=== PATIENT | male | born 1975 | race Two or more races ===

== ENCOUNTER 2021-07-27 10:25 | Outpatient (REF) | payer MEDICAID, SELFPAY ==
[2021-07-27 11:15] LABS: Hematocrit 43.1 % (42.0-52.0); Hemoglobin 14.2 g/dl (14.0-18.0); Mean Corpuscular HGB Conc 32.9 g/dl (31.0-36.0); Mean Corpuscular Hemoglobin 31.4 pg (27.0-33.0); Mean Corpuscular Volume 95.4 fL (80.0-98.0); Mean Platelet Volume 9.4 fL (9.4-12.4); Platelet Count 275 X10*3/uL (160-400); Red Blood Count 4.52 X10*6/uL (4.60-5.80); Red Cell Distribution Width 13.2 % (11.0-16.0)
[2021-07-27 12:12] LABS: Alanine Aminotransferase 11 U/L (0-40); Albumin Level 4.2 g/dL (3.5-5.0); Alkaline Phosphatase 52 U/L (39-117); Anion Gap 12 (12-20); Aspartate Amino Transferase 16 U/L (5-37); Bilirubin Direct 0.2 mg/dL (0.0-0.5); Bilirubin Total 0.6 mg/dL (0.0-1.0); Blood Urea Nitrogen 12 mg/dL (9-16); Calcium 9.6 mg/dL (8.4-10.2); Carbon Dioxide 26 mmol/L (22-29); Chloride 108 mmol/L (96-108); Cholesterol 197 mg/dL; Estimated Glomerular Filt Rate > 60; Glucose Random 92 mg/dL (60-115); HDL Cholesterol 50 mg/dL; LDL Cholesterol Calculated 131 mg/dl; Potassium 4.8 mmol/L (3.3-5.1); Sodium 141 mmol/L (135-145); Total Protein 6.7 g/dL (6.5-8.0); Triglycerides 84 mg/dL
[2021-07-27 12:35] LABS: Prostate Specific Antigen 1.61 ng/mL (<0.05-4.0); TSH reflex Free T4 0.46 uIU/mL (0.32-4.0)
== END 2021-07-27 10:26 | disposition home or self-care (01) ==
LOC: HO.LAB 10:25
PROVIDERS: PCP Internal Medicine Geriatric Medicine; Visit Provider Internal Medicine Geriatric Medicine
DX: Z12.5 Encounter for screening for malignant neoplasm of prostate (principal); Z13.1 Encounter for screening for diabetes mellitus; R40.0 Somnolence; R06.83 Snoring; E78.00 Pure hypercholesterolemia, unspecified; H53.8 Other visual disturbances
CPT/HCPCS: 36415; 80048; 80061; 80076; 84153; 84443; 85027

== ENCOUNTER 2022-03-08 10:54 | Outpatient (REF) | payer MEDICAID, SELFPAY ==
[2022-03-08 11:48] LABS: Alanine Aminotransferase 10 U/L (0-40); Albumin Level 4.3 g/dL (3.5-5.0); Alkaline Phosphatase 51 U/L (39-117); Anion Gap 11 (12-20); Aspartate Amino Transferase 15 U/L (5-37); Bilirubin Total 0.6 mg/dL (0.0-1.0); Blood Urea Nitrogen 12 mg/dL (9-16); Calcium 8.9 mg/dL (8.4-10.2); Carbon Dioxide 24 mmol/L (22-29); Chloride 106 mmol/L (96-108); Cholesterol 179 mg/dL; Estimated Glomerular Filt Rate 58; Glucose Random 95 mg/dL (60-115); HDL Cholesterol 47 mg/dL; LDL Cholesterol Calculated 114 mg/dl; Potassium 4.7 mmol/L (3.3-5.1); Sodium 136 mmol/L (135-145); Total Protein 6.7 g/dL (6.5-8.0); Triglycerides 90 mg/dL
== END 2022-03-08 10:55 | disposition home or self-care (01) ==
LOC: HO.LAB 10:54
PROVIDERS: PCP Internal Medicine Geriatric Medicine; Visit Provider Internal Medicine Geriatric Medicine
DX: E78.00 Pure hypercholesterolemia, unspecified (principal); Z79.899 Other long term (current) drug therapy
CPT/HCPCS: 36415; 80053; 80061

== ENCOUNTER → 2022-03-21 07:54 | Outpatient (BNVA) | payer MEDICAID, SELFPAY | PROVIDERS: PCP Internal Medicine Geriatric Medicine; Referring Provider Internal Medicine Geriatric Medicine; Visit Provider Nurse Practitioner Family | DX: Z01.818 Encounter for other preprocedural examination (principal) | CPT/HCPCS: 99202 ==

== ENCOUNTER 2022-07-23 12:37 | Day surgery (SDC) | payer MEDICAID, SELFPAY ==
[2022-07-15 13:25] VITALS: BMI 21.5
--- NOTE | 2022-07-22 10:51 | P.CONAN_ITS ---
Documented by User: Sindi Harvey NP 07/22/22 10:53 HPI - Anesthesia Eval Consult details Narrative: 47yo M for Colonoscopy [facility] Past Medical History Medical History (Updated 07/15/22 @ 13:17 by Neha Wilkins RN) Elevated cholesterol GERD (gastroesophageal reflux disease) Insomnia Family History Family History (Updated 03/21/22 @ 08:04 by Tony Pagan) Mother HTN (hypertension) High cholesterol Lung cancer Surgical History Surgical History (Updated 07/15/22 @ 13:24 by Neha Wilkins RN) No pertinent past surgical history Social History Social History (Updated 03/21/22 @ 08:02 by Tony Pagan) Household Members: Spouse Are you a primary career services director to a significant other at home: No Do you presently have visiting nurse or other home services: No Alcohol intake: current Alcohol intake frequency: does not drink Patient Tobacco Use Status: Never used Tobacco Use of substances other than those prescribed or required for medical reasons: Yes Substance Use Type: Marijuana Substance Use Frequency: Occasionally Have you been hit, kicked, punched, or otherwise hurt by someone within the past year? If so, by whom?: No Are you DNR?: No Advance Directives: No Advance Directives Information Provided: Yes (brochure mailed) Advance Directives on File: No Recently lost weight without trying: No Eating poorly because of decreased appetite: No Nutrition Risks: No Nutritional Risk Poor oral hygiene: No Meds Allergies Allergy/AdvReac Type Severity Reaction Status Date / Time No Known Allergies Allergy Verified 07/23/22 12:51 Home Medications Medication Instructions Recorded Confirmed Last Taken Type atorvastatin 20 mg tablet 20 mg PO DAILY 03/21/22 07/15/22 Unknown History omeprazole 20 mg capsule,delayed 20 mg PO DAILY 03/21/22 07/15/22 Unknown History release trazodone 50 mg tablet 100 mg PO BEDTIME 03/21/22 07/15/22 Unknown History zolpidem 10 mg tablet 10 mg PO BEDTIME 03/21/22 07/15/22 Unknown History Exam Exam Date and Time: July 22, 2022 1051 Height,Weight and Vital Signs: Height 5 ft 10 in Weight 68.039 kg Pertinent Lab Results Pertinent Lab Results: Laboratory Tests 07/27/21 03/08/22 10:35 11:02 WBC 9.0 Hgb 14.2 Hct 43.1 Plt Count 275 Sodium 136 Potassium 4.7 Chloride 106 Carbon Dioxide 24 BUN 12 Creatinine 1.32 Assessment and Plan Assessment Anesthesia Assessment: Chart Reviewed Documented by User: Pilar Dial MD 07/23/22 13:04 [facility] Past Medical History Medical History (Updated 07/15/22 @ 13:17 by Neha Wilkins RN) Elevated cholesterol GERD (gastroesophageal reflux disease) Insomnia Family History Family History (Updated 03/21/22 @ 08:04 by Tony Pagan) Mother HTN (hypertension) High cholesterol Lung cancer Family history of problems with anesthesia: No Surgical History Surgical History (Updated 07/15/22 @ 13:24 by Neha Wilkins RN) No pertinent past surgical history History of Problems with Anesthesia: No Social History Social History (Updated 03/21/22 @ 08:02 by Tony Pagan) Household Members: Spouse Are you a primary career services director to a significant other at home: No Do you presently have visiting nurse or other home services: No Alcohol intake: current Alcohol intake frequency: does not drink Patient Tobacco Use Status: Never used Tobacco Use of substances other than those prescribed or required for medical reasons: Yes Substance Use Type: Marijuana Substance Use Frequency: Occasionally Have you been hit, kicked, punched, or otherwise hurt by someone within the past year? If so, by whom?: No Are you DNR?: No Advance Directives: No Advance Directives Information Provided: Yes (brochure mailed) Advance Directives on File: No Recently lost weight without trying: No Eating poorly because of decreased appetite: No Nutrition Risks: No Nutritional Risk Poor oral hygiene: No Meds Allergies Allergy/AdvReac Type Severity Reaction Status Date / Time No Known Allergies Allergy Verified 07/23/22 12:51 Home Medications Medication Instructions Recorded Confirmed Last Taken Type atorvastatin 20 mg tablet 20 mg PO DAILY 03/21/22 07/15/22 Unknown History omeprazole 20 mg capsule,delayed 20 mg PO DAILY 03/21/22 07/15/22 Unknown History release trazodone 50 mg tablet 100 mg PO BEDTIME 03/21/22 07/15/22 Unknown History zolpidem 10 mg tablet 10 mg PO BEDTIME 03/21/22 07/15/22 Unknown History Assessment and Plan Final Anesthetic Review Family History of Problems with Anesthesia: No History of Problems with Anesthesia: No
--- NOTE | 2022-07-23 12:44 | MHC.SHP ---
Pre-Procedural Eval Section A Date of Service: 07/23/22 Section B Chief Complaint: screening Relevant Family History (Specify if Yes): No Relevant Social History: Other (specify) (occ THC use) Present Medications: see Short Stay Collaborative assessment Medical History: Significant History (Elevated cholesterol GERD (gastroesophageal reflux disease) Insomnia) History of Previous Operations: No relevant previous surgery Allergies: Allergies Allergy/AdvReac Type Severity Reaction Status Date / Time No Known Allergies Allergy Verified 03/21/22 08:01 Review of Systems Sugical H&P ROS: Negative: Constitution, Cardiovascular, Respiratory, Neurological, Psychiatric, Hem-Onc, Allergic/Immunologic, Gastrointestinal, Genitourinary, Musculoskeletal, Integumentary, Endocrine and Eyes/Ears/Nose/Throat Exam Surgical H&P Exam: Normal: HEENT, Normal: Heart, Normal: Lungs, Normal: Extremities, Normal: Abdomen, Normal: Skin and Normal: Neurological Plan Diagnosis/Plan: Unchanged I have reviewed the history and physical and performed a pertinent physical examination on my patient. No changes have occurred unless specified.
[2022-07-23 13:03] VITALS: BP 124/88; PULSE 90; RESP 16; TEMP 36.8; O2SAT 100
[2022-07-23] MEDS: Lactated Ringers 1,000 ML 100 ML IVCONT (13:37)
--- NOTE | 2022-07-23 14:04 | W.PM.OPN ---
Operative Note Operative Note Date of Service: 07/23/22 Narrative: Operative Information Procedure Description: Colonoscopy Indication: screening Anesthesia: MAC COLONOSCOPY Instrument: Olympus variable stiffness ADULT scope 190L Colonoscopy Monitoring: Vital signs and clinical assessment, continuous EKG monitoring, Pulse oximetry, Carbon Dioxide monitoring and blood pressure monitoring were done throughout the procedure. Colon withdrawal time was 8 minutes. Procedure: The patient was placed in the left lateral decubitis position and pre-procedure medications were administered. After a digital rectal examination of the ano-rectum, the video colonoscope was inserted into the rectum and advanced through the colon to the cecum/TI. The colonoscope was slowly withdrawn in a retrograde panoramic fashion and the colon mucosa was carefully examined including a retroflexed view of the rectum. Findings and interventions are described below. Procedure Difficulty: easy Findings: Terminal Ileum-normal Cecum: 7-8 mm sessile polyp removed with cold forceps Ascending Colon: normal Transverse Colon - 7-8 mm sessile polyp removed with cold forceps Descending Colon:normal Sigmoid Colon: 8-9 mm sessile polyp removed with cold snare Rectum: Retroflexion with medium sized internal hemorrhoids, grade I, 4-5 mm sessile polyp removed with cold forceps Anorectum - normal Colon preparation: [place] Bowel Preparation Scale Right colon; 1-2 Transverse colon: 2 Left colon; -1-2 (0 = Unprepared colon segment with mucosa not seen due to solid stool that cannot be cleared. 1 = Portion of mucosa of the colon segment seen, but other areas of the colon segment not well seen due to staining, residual stool and/or opaque liquid. 2 = Minor amount of residual staining, small fragments of stool and/or opaque liquid, but mucosa of colon segment seen well. 3 = Entire mucosa of colon segment seen well with no residual staining, small fragments of stool or opaque liquid) Impression and Post Procedure Diagnosis: polyps internal hemorrhoids Plan: High fiber diet leaflet Avoid straining at stool, epsom salts and sitz bath, anusol supps or cream Repeat Colonoscopy in 1-2 years due to fair prep or earlier if clinically indicated Above findings were reviewed with the patient and relevant handouts were provided if indicated.
[2022-07-23 14:16] VITALS: BP 100/62; PULSE 64; RESP 12; TEMP 36.6; O2SAT 99
[2022-07-23 14:30] VITALS: BP 125/72; PULSE 62; RESP 16; O2SAT 99
[2022-07-23 14:45] VITALS: BP 133/78; PULSE 60; RESP 16; O2SAT 99
[2022-07-23 15:00] VITALS: BP 118/72; PULSE 60; RESP 16; TEMP 37.1; O2SAT 99
== END 2022-07-23 15:55 | disposition home or self-care (01) ==
PROVIDERS: PCP Internal Medicine Geriatric Medicine; Visit Provider Internal Medicine Gastroenterology
PROC: 0DJD8ZZ Inspection of Lower Intestinal Tract, Via Natural or Artificial Opening Endoscopic (ICD-10-PCS; CPT 45378; principal; 2022-07-23 13:50)
DX: Z12.11 Encounter for screening for malignant neoplasm of colon (principal); D12.0 Benign neoplasm of cecum; D12.3 Benign neoplasm of transverse colon; K62.1 Rectal polyp; K46.0 Unspecified abdominal hernia with obstruction, without gangrene; K21.9 Gastro-esophageal reflux disease without esophagitis; E78.00 Pure hypercholesterolemia, unspecified; G47.00 Insomnia, unspecified; Z79.899 Other long term (current) drug therapy; F12.90 Cannabis use, unspecified, uncomplicated
CPT/HCPCS: 45385; 45380; 88302; 88305

== ENCOUNTER → 2022-08-06 08:06 | Outpatient (BNVA) | payer MEDICAID, SELFPAY | PROVIDERS: PCP Internal Medicine Geriatric Medicine; Visit Provider Nurse Practitioner Family | DX: K59.01 Slow transit constipation (principal); D36.9 Benign neoplasm, unspecified site; Z98.890 Other specified postprocedural states | CPT/HCPCS: 99212 ==

== ENCOUNTER 2023-03-18 10:05 | Outpatient (AMB) | payer MEDICAID, SELFPAY ==
[2023-03-18 10:33] VITALS: BP 120/70; PULSE 75; BMI 21.7
--- NOTE | 2023-03-18 10:33 | A.OFFVIS_ITS ---
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 Patient had suboptimal prior and will need to return for follow-up in 1 year. Status post colonoscopy Patient denies any ill effects from the prep, anesthesia or procedure itself. Suboptimal prep and will need to repeat colonoscopy in 1 year. Tubular adenoma found. Patient does have a family history of colorectal cancer. Constipation Patient does reports that occasionally he will feel like he needs to strain to have a bowel movement. Will send a script for MiraLax. I will see him in 6 months to re-evaluate. Patient will need to come back for colonoscopy due to suboptimal prep. He is agreeable to plan and verbalizes understanding instructions he was given the opportunity to ask questions and all questions answered. ? Thank for allowing me to participate in his care Plan Medications New polyethylene glycol 3350 (Miralax) 17 grams PO DAILY 510 grams 2RF hydrocortisone 2.5% (Proctosol HC) 1 appl LA BID-QID PRN 30 grams 2RF hemorrhoids K64.9 TODAY'S VISIT Patient is here today for follow-up. Patient is accompanied by his . Patient reports that he has been moving his bowels much better. Complains of rectal discomfort. This that he feels like his hemorrhoids are back. Tried Proctosol cream, however he feels like they are coming back. Patient denies any rectal bleeding. Reports that his bowels are mostly soft and he is moving them every day. Patient is taking MiraLax daily. Patient denies any other GI concerning symptoms. States that omeprazole helps him with acid reflux and uses on a as needed basis. [facility] Medical History Elevated cholesterol GERD (gastroesophageal reflux disease) Insomnia Tubular adenoma Surgical History Hx of colonoscopy No pertinent past surgical history Family History Mother HTN (hypertension) High cholesterol Lung cancer Social History Household Members: Spouse Are you a primary manager intensive care unit to a significant other at home: No Do you presently have visiting nurse or other home services: No Alcohol intake: current Alcohol intake frequency: does not drink Patient Tobacco Use Status: Never used Tobacco Substance Use Type: Crack/Cocaine and Marijuana Review of Systems Const Denies weight gain and Denies weight loss ENT Reports no additional complaints, Denies dysphagia and Denies odynophagia Card Reports no additional complaints Resp Reports no additional complaints GI Denies abdominal pain, Denies belching, Denies melena, Denies bloating, Denies change in bowel habits, Denies dysphagia, Denies excessive flatus, Denies dyspepsia, Denies heartburn, Denies diarrhea, Denies loose stools, Denies nausea, Denies odynophagia, Denies vomiting and Reports other (Rectal pain due to hemorrhoids) Reports no additional complaints Musc Reports no additional complaints Neuro Reports no additional complaints Psych Reports no additional complaints Endo Reports no additional complaints Physical Exam Vital Signs: Last Vital Signs Pulse 75 03/18/23 10:33 BP 120/70 03/18/23 10:33 BMI result Body Mass Index 21.7 Const General: healthy appearing, no acute distress and well developed Nutritional Appearance: well nourished Orientation/consciousness: patient oriented x3 HEENT Head: Yes normal to inspection, Yes normocephalic and Yes atraumatic Face and sinus: Yes normal facial exam Mouth: Normal oral and palatal mucosa present Throat: Yes posterior oropharynx normal, Yes tonsils normal and Yes uvula midline Eyes General: appearance normal, both eyes and all related structures Neck Neck: Yes normal visual inspection, Yes full ROM and Yes trachea midline Thyroid: Thyroid normal Resp Effort & Inspection: normal respiratory effort, able to speak in complete sentences, no tracheal deviation and symmetric chest movement Auscultation: clear to auscultation bilaterally Cardio Rate: regular rate Heart sounds: S1 normal heart sound present and S2 normal heart sound present GI Inspection: Yes normal to inspection and No distended Palpation (GI): Soft to palpation, not firm, nontender and No hepatosplenomegaly present Auscultation: normal bowel sounds General: Yes no CVA tenderness Back/Spine/Pelvis Back: no CVA tenderness Skin General skin exam: elasticity normal, turgor normal and dry skin Neuro General: patient oriented x3 Psych Appearance: grossly normal Mental Status: mental status grossly normal Speech and movement: Normal speech and movement present Affect: normal affect Assessment & Plan Assessment & Plan (1) Constipation: Code(s): K59.00 - Constipation, unspecified Qualifiers: Constipation type: slow transit constipation Qualified Code(s): K59.01 - Slow transit constipation Plan: Continue MiraLax. Patient was encouraged to increase fluid intake (2) Hemorrhoid: Code(s): K64.9 - Unspecified hemorrhoids Qualifiers: Hemorrhoid type: unspecified Qualified Code(s): K64.9 - Unspecified hemorrhoids Plan: Patient was instructed to use Proctosol cream couple times a day for 1 week at least. Then he can use it daily. Stool softener as needed. Patient was encouraged to get donut pillow to sitting. Sitz baths using Epsom salts (3) GERD (gastroesophageal reflux disease): Code(s): K21.9 - Gastro-esophageal reflux disease without esophagitis Plan: Continue taking omeprazole. Discussed with patient avoiding dietary triggers and late night snacking. Staying upright for minimal 3 hours after meals discussed with patient. I will see him in 3 months, sooner on as needed basis. Patient is agreeable to this plan and verbalizes understanding of instructions. He was given the opportunity to ask questions and all questions answered. Thank you for allowing me to participate in his care Medications: Refilled hydrocortisone 2.5% (Proctosol HC) 1 appl LA BID-QID PRN 30 grams 2RF hemorrhoids K64.9 - Unspecified hemorrhoids Coding Level of Care Code Est Pt Level 3 (71853) Diagnoses Constipation K59.01 Constipation type: slow transit constipation Hemorrhoid K64.9 Hemorrhoid type: unspecified GERD (gastroesophageal reflux disease) K21.9 Time Spent (min) 30 Comment 20 minutes spent with patient and additional 10 minutes spent reviewing his records
== END 2023-03-18 10:49 | disposition home or self-care (01) ==
PROVIDERS: PCP Internal Medicine Geriatric Medicine; Visit Provider Nurse Practitioner Family
DX: K59.01 Slow transit constipation (principal); K64.9 Unspecified hemorrhoids; K21.9 Gastro-esophageal reflux disease without esophagitis
CPT/HCPCS: 99213

== ENCOUNTER → 2023-03-18 10:05 | Outpatient (BNVA) | payer MEDICAID, SELFPAY | PROVIDERS: PCP Internal Medicine Geriatric Medicine; Visit Provider Nurse Practitioner Family | DX: K59.01 Slow transit constipation (principal); K64.9 Unspecified hemorrhoids; K21.9 Gastro-esophageal reflux disease without esophagitis | CPT/HCPCS: 99213 ==

== ENCOUNTER 2023-06-23 09:33 | Outpatient (AMB) | payer MEDICAID, SELFPAY ==
[2023-06-23 09:51] VITALS: BP 114/73; PULSE 61; O2SAT 99; BMI 22.5
--- NOTE | 2023-06-23 09:51 | A.OFFVIS_ITS ---
Intake Vital Signs 06/23/23 09:51 Height 5 ft 10 in Weight 156 lb 8.451 oz BMI 22.5 BP 114/73 Blood Pressure Location Lt brachial Position Sitting Pulse 61 Pulse Source Pulse Oximeter Pulse Oximetry (%) 99 Oxygen Delivery Method Room Air Intake Visit Reasons: 3 month follow up Intake Note: Pt presents to the office today for a 3 month follow up. Pt states he is feeling well. Pt states the constipation has improved and it is easier to have a bowel movement since taking the miralax. Pt denies any N/V/D. Allergies No Known Allergies Allergy (Verified 06/23/23 09:53) HPI 3 month follow up HPI Details LAST VISIT Constipation Continue MiraLax. Patient was encouraged to increase fluid intake Hemorrhoid Patient was instructed to use Proctosol cream couple times a day for 1 week at least. Then he can use it daily. Stool softener as needed. Patient was encouraged to get donut pillow to sitting. Sitz baths using Epsom salts GERD (gastroesophageal reflux disease) Continue taking omeprazole. Discussed with patient avoiding dietary triggers and late night snacking. Staying upright for minimal 3 hours after meals discussed with patient. I will see him in 3 months, sooner on as needed basis. Patient is agreeable to this plan and verbalizes understanding of instructions. He was given the opportunity to ask questions and all questions answered. ? Thank you for allowing me to participate in his care Plan Medications Refilled hydrocortisone 2.5% (Proctosol HC) 1 appl NE BID-QID PRN 30 grams 2RF hemorrhoids K64.9 - Unspecified hemorrhoids * TODAY'S VISIT: Patient is here today for follow-up. Patient reports that he has been feeling better. Is able to move his bowels without any issues. Patient is taking her MiraLax daily. Patient denies melena, hematochezia, unintentional weight loss or ribbon like stools. Patient reports occasional acid reflux and dyspepsia without dysphagia or odynophagia. Patient also reports occasional postprandial epigastric discomfort. Denies any abdominal pain. Denies nausea or vomiting. Denies any diarrhea. Patient denies any other GI concerning symptoms. Patient had colonoscopy were tubular adenoma was found and will need to repeat c olorectal screening next year [facility] Medical History Tubular adenoma Insomnia GERD (gastroesophageal reflux disease) Elevated cholesterol Surgical History Hx of colonoscopy No pertinent past surgical history Family History Mother HTN (hypertension) High cholesterol Lung cancer Social History (Updated 06/23/23 @ 09:54 by Beverly Champagne MA) Household Members: Spouse Are you a primary certified caregiver to a significant other at home: No Do you presently have visiting nurse or other home services: No Alcohol intake: current Alcohol intake frequency: a few times a month Patient Tobacco Use Status: Never used Tobacco Substance Use Type: Crack/Cocaine and Marijuana Review of Systems Const Denies weight gain and Denies weight loss ENT Reports no additional complaints, Denies dysphagia and Denies odynophagia Card Reports no additional complaints Resp Reports no additional complaints GI Denies abdominal pain, Denies belching, Denies melena, Denies bloating, Denies change in bowel habits, Denies dysphagia, Denies excessive flatus, Denies dyspepsia, Reports heartburn, Denies diarrhea, Denies loose stools, Denies nausea, Denies odynophagia and Denies vomiting Reports no additional complaints Musc Reports no additional complaints Neuro Reports no additional complaints Psych Reports no additional complaints Endo Reports no additional complaints Physical Exam Vital Signs: Last Vital Signs Pulse 61 06/23/23 09:51 BP 114/73 06/23/23 09:51 Pulse Ox 99 06/23/23 09:51 Oxygen Delivery Method Room Air 06/23/23 09:51 BMI result Body Mass Index 22.5 Const General: healthy appearing, no acute distress and well developed Nutritional Appearance: well nourished Orientation/consciousness: patient oriented x3 HEENT Head: Yes normal to inspection, Yes normocephalic and Yes atraumatic Face and sinus: Yes normal facial exam Mouth: Normal oral and palatal mucosa present Throat: Yes posterior oropharynx normal, Yes tonsils normal and Yes uvula midline Eyes General: appearance normal, both eyes and all related structures Neck Neck: Yes normal visual inspection, Yes full ROM and Yes trachea midline Thyroid: Thyroid normal Resp Effort & Inspection: normal respiratory effort, able to speak in complete sentences, no tracheal deviation and symmetric chest movement Auscultation: clear to auscultation bilaterally Cardio Rate: regular rate Heart sounds: S1 normal heart sound present and S2 normal heart sound present GI Inspection: Yes normal to inspection, No distended and Yes obesity Palpation (GI): Soft to palpation, not firm, nontender and No hepatosplenomegaly present Auscultation: normal bowel sounds General: Yes no CVA tenderness Back/Spine/Pelvis Back: no CVA tenderness Skin General skin exam: elasticity normal, turgor normal and dry skin Neuro General: patient oriented x3 Psych Appearance: grossly normal Mental Status: mental status grossly normal Assessment & Plan Assessment & Plan (1) Tubular adenoma: Code(s): D36.9 - Benign neoplasm, unspecified site (2) Constipation: Code(s): K59.00 - Constipation, unspecified Qualifiers: Constipation type: slow transit constipation Qualified Code(s): K59.01 - Slow transit constipation (3) Hemorrhoid: Code(s): K64.9 - Unspecified hemorrhoids Qualifiers: Hemorrhoid type: unspecified Qualified Code(s): K64.9 - Unspecified hemorrhoids (4) GERD (gastroesophageal reflux disease): Code(s): K21.9 - Gastro-esophageal reflux disease without esophagitis Qualifiers: Esophagitis presence: esophagitis presence not specified Qualified Code(s): K21.9 - Gastro-esophageal reflux disease without esophagitis Plan Patient will start omeprazole 20 mg every morning half an hour before breakfast. Patient was also encouraged to avoid dietary triggers and late night snacking. Patient will increase fluid intake and activity to promote better bowel motility. Patient will continue taking MiraLax daily He will return to the office in 6 months, sooner on as needed basis. Patient is agreeable to this plan and verbalizes understanding of instructions. He was given the opportunity to ask questions and all questions answered. Thank you for allowing me to participate in his care Medications: New omeprazole 20 mg PO DAILY 90 caps 2RF Coding Level of Care Code Est Pt Level 3 (08222) Diagnoses Tubular adenoma D36.9 Slow transit constipation K59.01 Constipation type: slow transit constipation Hemorrhoids, unspecified hemorrhoid type K64.9 Hemorrhoid type: unspecified Gastroesophageal reflux disease, unspecified whether esophagitis present K21.9 Esophagitis presence: esophagitis presence not specified Time Spent (min) 25 Comment 15 minutes spent with patient and additional 10 minutes spent reviewing his records
== END 2023-06-23 10:13 | disposition home or self-care (01) ==
PROVIDERS: PCP Internal Medicine Geriatric Medicine; Visit Provider Nurse Practitioner Family
DX: K59.01 Slow transit constipation (principal); K21.9 Gastro-esophageal reflux disease without esophagitis; K64.9 Unspecified hemorrhoids; Z86.010 Personal history of colon polyps
CPT/HCPCS: 99213

== ENCOUNTER → 2023-06-23 09:33 | Outpatient (BNVA) | payer MEDICAID, SELFPAY | PROVIDERS: PCP Internal Medicine Geriatric Medicine; Visit Provider Nurse Practitioner Family | DX: K59.01 Slow transit constipation (principal); K64.9 Unspecified hemorrhoids; K21.9 Gastro-esophageal reflux disease without esophagitis; D36.9 Benign neoplasm, unspecified site | CPT/HCPCS: 99212 ==

== ENCOUNTER 2024-01-13 10:45 | Outpatient (REF) | payer MEDICAID, SELFPAY ==
[2024-01-13 13:47] LABS: Alanine Aminotransferase 11 U/L (0-40); Albumin Level 4.3 g/dL (3.5-5.0); Alkaline Phosphatase 54 U/L (39-117); Anion Gap 14 (12-20); Aspartate Amino Transferase 15 U/L (5-37); Bilirubin Total 0.5 mg/dL (0.0-1.0); Blood Urea Nitrogen 10 mg/dL (9-16); Calcium 9.4 mg/dL (8.4-10.2); Carbon Dioxide 24 mmol/L (22-29); Chloride 106 mmol/L (96-108); Cholesterol 154 mg/dL (<200); Estimated Glomerular Filt Rate > 60; Glucose Random 86 mg/dL (60-115); HDL Cholesterol 52 mg/dL (>40); LDL Cholesterol Calculated 90 mg/dL (<100); Potassium 4.1 mmol/L (3.3-5.1); Sodium 140 mmol/L (135-145); Total Protein 6.8 g/dL (6.5-8.0); Triglycerides 61 mg/dL (<150)
== END 2024-01-13 10:46 | disposition home or self-care (01) ==
LOC: HO.HHCL 10:45
PROVIDERS: Visit Provider Internal Medicine Geriatric Medicine
DX: E78.00 Pure hypercholesterolemia, unspecified (principal); Z80.42 Family history of malignant neoplasm of prostate; Z12.5 Encounter for screening for malignant neoplasm of prostate
CPT/HCPCS: 36415; 80053; 80061; 84153

== ENCOUNTER 2024-06-15 14:31 | Outpatient (AMB) | payer MEDICAID, SELFPAY ==
--- NOTE | 2024-06-15 14:34 | A.OFFVIS_ITS ---
Vital Signs 06/15/24 14:35 Height 5 ft 10 in Weight 141 lb 15.643 oz BMI 20.4 BP 98/66 Blood Pressure Location Lt brachial Position Sitting Pulse 66 Pulse Source Pulse Oximeter Pulse Oximetry (%) 99 Oxygen Delivery Method Room Air Intake Visit Reasons: f/u Intake Note: Relevant Flags or Indicators ? Requires Energy Efficiency Finance Manager? Jeremi Dorina presents in office today for a scheduled 1 year FUV. CC; Since last visit; labs ordered ? via PCP. Rx ordered ? yes, omeprazole. Diagnostics/images ordered ? none. Pt is supposed to discuss colo procedure with provider. Relevant GI Sx as reported per pt? Pt does report having intermittent difficulties with hemorrhoids. Pt does not have any sx currently but has had repeated episodes over the last year. ? Hx of any recent surgeries; None Energy Efficiency Finance Manager Required: No Allergies No Known Allergies Allergy (Verified 06/15/24 14:34) HPI HPI f/u: Details: LAST VISIT Tubular adenoma Constipation Hemorrhoid GERD (gastroesophageal reflux disease) Plan Patient will start omeprazole 20 mg every morning half an hour before breakfast. Patient was also encouraged to avoid dietary triggers and late night snacking. Patient will increase fluid intake and activity to promote better bowel motility. Patient will continue taking MiraLax daily He will return to the office in 6 months, sooner on as needed basis. Patient is agreeable to this plan and verbalizes understanding of instructions. He was given the opportunity to ask questions and all questions answered. ? Thank you for allowing me to participate in his care Medications New omeprazole 20 mg PO DAILY 90 caps 2RF TODAY'S VISIT Patient is here today for follow-up and to discuss going for colonoscopy. Since the last time I have seen him he has been doing fairly well, occasional constipation. Denies any melena, hematochezia, unintentional weight loss or ribbon like stools. Patient denies any dyspepsia, dysphagia or odynophagia. Patient denies any issues with anesthesia in the past. No history of sleep apnea. Not on any anticoagulation medication. Patient has been doing fairly well occasional blood in his stool if he is constipated, no actual bleeding. Patient denies any cardiac or respiratory symptoms. Denies any other GI concerning symptoms. [facility] Medical History Tubular adenoma Insomnia GERD (gastroesophageal reflux disease) Elevated cholesterol Surgical History Hx of colonoscopy No pertinent past surgical history Family History Mother HTN (hypertension) High cholesterol Lung cancer Social History Household Members: Spouse Are you a primary aged or disabled care worker to a significant other at home: No Do you presently have visiting nurse or other home services: No Alcohol intake: current Alcohol intake frequency: a few times a month Patient Tobacco Use Status: Never used Tobacco Substance Use Type: Crack/Cocaine and Marijuana Review of Systems Const Denies weight gain and Denies weight loss ENT Reports no additional complaints, Denies dysphagia and Denies odynophagia Card Reports no additional complaints Resp Reports no additional complaints GI Denies abdominal pain, Denies belching, Denies melena, Denies bloating, Denies change in bowel habits, Reports constipation, Denies dysphagia, Denies excessive flatus, Denies dyspepsia, Denies heartburn, Denies diarrhea, Denies loose stools, Denies nausea, Denies odynophagia and Denies vomiting Reports no additional complaints Musc Reports no additional complaints Neuro Reports no additional complaints Psych Reports no additional complaints Endo Reports no additional complaints Physical Exam Vital Signs: Last Vital Signs Pulse 66 06/15/24 14:35 BP 98/66 06/15/24 14:35 Pulse Ox 99 06/15/24 14:35 Oxygen Delivery Method Room Air 06/15/24 14:35 BMI result Body Mass Index 20.4 Const General: healthy appearing, no acute distress and well developed Nutritional Appearance: well nourished Orientation/consciousness: patient oriented x3 Resp Effort & Inspection: normal respiratory effort, able to speak in complete sentences, no tracheal deviation and symmetric chest movement Auscultation: clear to auscultation bilaterally Cardio Rate: regular rate GI Inspection: Yes normal to inspection, No distended and Yes obesity Palpation (GI): Soft to palpation, not firm, nontender and No hepatosplenomegaly present Auscultation: normal bowel sounds General: Yes no CVA tenderness Back/Spine/Pelvis Back: no CVA tenderness Skin General skin exam: elasticity normal, turgor normal and dry skin Neuro General: patient oriented x3 Psych Appearance: grossly normal Mental Status: mental status grossly normal Assessment & Plan Assessment & Plan (1) Tubular adenoma: Code(s): D36.9 - Benign neoplasm, unspecified site Category: Medical (2) Screen for colon cancer: Code(s): Z12.11 - Encounter for screening for malignant neoplasm of colon (3) Constipation: Code(s): K59.00 - Constipation, unspecified Qualifiers: Constipation type: slow transit constipation Qualified Code(s): K59.01 - Slow transit constipation Plan Patient was encouraged to increase fluid intake and activity to promote better bowel motility. Patient will be sent for colonoscopy. Message sent to surgical schedulers. Will send patient extra Dulcolax so he can take it 1 week before procedure. If patient will require additional medication prior to going for colonoscopy he will call our office. What to expect before during and after procedure discussed with patient. Stressed the importance of good bowel prep and clear liquid diet day before procedure. Patient can continue omeprazole daily or on as needed basis. Avoid dietary triggers and late night snacking. Staying upright for minimum 3 hours after meals discussed with patient. I will see patient after the procedure, sooner on as needed basis. He is agreeable to this plan and verbalizes understanding of instructions. He was given the opportunity to ask questions and all questions answered Medications: New polyethylene glycol 3350 (Miralax) As directed by gastroenterology department at [facility] 238 grams PO ONCE 238 grams 0RF Z12.11 - Encounter for screening for malignant neoplasm of colon bisacodyl (Dulcolax (bisacodyl)) Start taking 2 tablet every night 7 days before the procedure and 1 day be fore procedure take 4 tablets at noon time followed by MiraLax prep 10 mg (2 x 5 mg) PO BEDTIME 16 tabs 0RF Z12.11 - Encounter for screening for malignant neoplasm of colon docusate sodium 200 mg (2 x 100 mg) PO BEDTIME 180 caps 3RF K59.00 - Constipation, unspecified Coding Level of Care Code Est Pt Level 3 (31862) Diagnoses Tubular adenoma D36.9 Screen for colon cancer Z12.11 Slow transit constipation K59.01 Constipation type: slow transit constipation Time Spent (min) 30 Comment 20 minutes spent with patient and additional 10 minutes spent reviewing his records
[2024-06-15 14:35] VITALS: BP 98/66; PULSE 66; O2SAT 99; BMI 20.4
== END 2024-06-15 15:13 | disposition home or self-care (01) ==
LOC: HO.HGI 14:31
PROVIDERS: PCP Internal Medicine Geriatric Medicine; Visit Provider Nurse Practitioner Family
DX: D36.9 Benign neoplasm, unspecified site (principal); Z12.11 Encounter for screening for malignant neoplasm of colon; K59.01 Slow transit constipation
CPT/HCPCS: 99213

== ENCOUNTER → 2024-06-15 14:31 | Outpatient (BNVA) | payer MEDICAID, SELFPAY | PROVIDERS: PCP Internal Medicine Geriatric Medicine; Visit Provider Nurse Practitioner Family | DX: Z12.11 Encounter for screening for malignant neoplasm of colon (principal); K59.01 Slow transit constipation; D36.9 Benign neoplasm, unspecified site | CPT/HCPCS: 99212 ==

== ENCOUNTER 2024-10-11 07:08 | Day surgery (SDC) | payer MEDICAID, SELFPAY ==
[2024-10-06 14:31] VITALS: BMI 20.4
--- NOTE | 2024-10-07 09:46 | HO.ANESPROP2 ---
Documented by User: Sindi Harvey NP 10/07/24 09:47 HPI - Anesthesia Eval Consult details Narrative: 49yo M for Colonoscopy PMFSH Active Problems Active Problems: All Active Problems Tubular adenoma (Acute) Past Medical History Medical History Tubular adenoma Insomnia GERD (gastroesophageal reflux disease) Elevated cholesterol Family History Family History Mother HTN (hypertension) High cholesterol Lung cancer Family history of problems with anesthesia: No Surgical History Surgical History Hx of colonoscopy History of Problems with Anesthesia: No Social History Social History Household Members: Spouse Are you a primary care management specialist to a significant other at home: No Do you presently have visiting nurse or other home services: No Alcohol intake: current Alcohol intake frequency: holidays/special occasions only Patient Tobacco Use Status: Never used Tobacco Use of substances other than those prescribed or required for medical reasons: Yes Substance Use Type: Crack/Cocaine and Marijuana Substance Use Frequency: Daily Have you been hit, kicked, punched, or otherwise hurt by someone within the past year? If so, by whom?: No Are you DNR?: No Advance Directives: No Advance Directives Information Provided: Yes Recently lost weight without trying: No Nutrition Risks: No Nutritional Risk Poor oral hygiene: No Meds Allergies Allergy/AdvReac Type Severity Reaction Status Date / Time No Known Allergies Allergy Verified 10/11/24 07:40 Home Medications ?Medication ?Instructions ?Recorded ?Confirmed ?Last Taken ?Type atorvastatin 20 mg tablet 20 mg PO DAILY 03/21/22 10/06/24 Unknown History trazodone 50 mg tablet 100 mg PO BEDTIME 03/21/22 10/06/24 Unknown History zolpidem 10 mg tablet 10 mg PO BEDTIME 03/21/22 10/06/24 Unknown History loratadine 10 mg tablet 10 mg PO QAM 06/15/24 10/06/24 Unknown History Exam Height,Weight and Vital Signs: Height 5 ft 10 in Weight 64.41 kg Assessment and Plan Assessment Anesthesia Assessment: Chart Reviewed Final Anesthetic Review Family History of Problems with Anesthesia: No History of Problems with Anesthesia: No Documented by User: De Canales MD 10/11/24 08:26 PMF Past Medical History Medical History Tubular adenoma Insomnia GERD (gastroesophageal reflux disease) Elevated cholesterol Family History Family History Mother HTN (hypertension) High cholesterol Lung cancer Surgical History Surgical History Hx of colonoscopy Social History Social History Household Members: Spouse Are you a primary care management specialist to a significant other at home: No Do you presently have visiting nurse or other home services: No Alcohol intake: current Alcohol intake frequency: holidays/special occasions only Patient Tobacco Use Status: Never used Tobacco Use of substances other than those prescribed or required for medical reasons: Yes Substance Use Type: Crack/Cocaine and Marijuana Substance Use Frequency: Daily Have you been hit, kicked, punched, or otherwise hurt by someone within the past year? If so, by whom?: No Are you DNR?: No Advance Directives: No Advance Directives Information Provided: Yes Recently lost weight without trying: No Nutrition Risks: No Nutritional Risk Poor oral hygiene: No Meds Allergies Allergy/AdvReac Type Severity Reaction Status Date / Time No Known Allergies Allergy Verified 10/11/24 07:40 Home Medications ?Medication ?Instructions ?Recorded ?Confirmed ?Last Taken ?Type atorvastatin 20 mg tablet 20 mg PO DAILY 03/21/22 10/06/24 Unknown History trazodone 50 mg tablet 100 mg PO BEDTIME 03/21/22 10/06/24 Unknown History zolpidem 10 mg tablet 10 mg PO BEDTIME 03/21/22 10/06/24 Unknown History loratadine 10 mg tablet 10 mg PO QAM 06/15/24 10/06/24 Unknown History Exam Airway Mallampati Class: I TM Dist: >3cm Neck ROM: Full Loose/Missing/Broken Teeth: No Heart: ok Lungs: ok Assessment and Plan Assessment Anesthesia Assessment: Anesthesia Plan Discussed Final Anesthetic Review NPO: Yes ASA Class: II Final Preanesthetic Review: No Changes in Pt Med Stat, Meds/Allgs Chart Reviewed, Consent Obtained/Reviewed and Anes Risks/Benef Reviewed Patient Risk: Low Procedure Risk: Low Anesthetic Plan Anesthetic Plan: MAC: and Agree w/ Assess. and Plan Disposition: Standard PACU
[2024-10-11 07:47] VITALS: BP 126/81; PULSE 71; RESP 14; TEMP 36.6; O2SAT 98; BMI 20.4
[2024-10-11] MEDS: Lactated Ringers 1,000 ML 100 ML IVCONT (08:01)
--- NOTE | 2024-10-11 08:08 | P.HPSUR_ITS ---
Pre-Procedural Eval Section A - 24 Hr Update-Section A only Date of Service: 10/11/24 Section B - Complete if H&P > 30 days Chief Complaint: Encounter for screening for malignant neoplasm of Relevant Family History (Specify if Yes): No Relevant Social History: Tobacco Use Present Medications: see Short Stay Collaborative assessment Medical History: Significant History (Tubular adenoma Insomnia GERD (ga stroesophageal reflux disease) Elevated cholesterol) History of Previous Operations: Relevant previous surgery/procedure and date(s) (Hx of colonoscopy) Allergies: Allergies Allergy/AdvReac Type Severity Reaction Status Date / Time No Known Allergies Allergy Verified 10/11/24 07:40 Review of Systems Sugical H&P ROS: Negative: Constitution, Cardiovascular, Respiratory, Neurological, Psychiatric, Hem-Onc, Allergic/Immunologic, Gastrointestinal, Lizz tourinary, Musculoskeletal, Integumentary, Endocrine and Eyes/Ears/Nose/Throat Exam Surgical H&P Exam: Normal: HEENT, Normal: Heart, Normal: Lungs, Normal: Extremities, Normal: Abdomen, Normal: Skin and Normal: Neurological Plan Diagnosis/Plan: Unchanged I have reviewed the history and physical and performed a pertinent physical examination on my patient. No changes have occurred unless specified. Time Spent With Patient Time: Total time managing care of this patient today ____ minutes.
[2024-10-11 08:18] LABS: Amphetamine Screen Urine Not Detected (Not Detect); Barbiturates, Urine Not Detected (Not Detect); Benzodiazepines Screen Urine Not Detected (Not Detect); Buprenorphine Scr Not Detected (Not Detect); Cannabinoid Screen Urine POSITIVE (Not Detect); Cocaine Screen Urine Not Detected (Not Detect); Fentanyl, urine Not Detected (Not Detect); Methadone Screen, Urine Not Detected (Not Detect); Opiate Screen Urine Not Detected (Not Detect); Oxycodone Screen Urine Not Detected (Not Detect); Phencyclidine Screen Urine Not Detected (Not Detect)
--- NOTE | 2024-10-11 08:45 | HO.OPN-COLON ---
Colonoscopy Operative Note Operative Note Date of Service: 10/11/24 Narrative: Operative Information Procedure Description: Colonoscopy Indication: screening, hx of colon polyps Anesthesia: MAC COLONOSCOPY Instrument: Olympus variable stiffness pediatric scope 190L Colonoscopy Monitoring: Vital signs and clinical assessment, continuous EKG monitoring, Pulse oximetry, Carbon Dioxide monitoring and blood pressure monitoring were done throughout the procedure. Colon withdrawal time was 10 minutes. Procedure: The patient was placed in the left lateral decubitis position and pre-procedure medications were administered. After a digital rectal examination of the ano-rectum, the video colonoscope was inserted into the rectum and advanced through the colon to the cecum/TI. The colonoscope was slowly withdrawn in a retrograde panoramic fashion and the colon mucosa was carefully examined including a retroflexed view of the rectum. Findings and interventions are described below. Procedure Difficulty: easy Findings: Terminal Ileum-normal Cecum:normal Ascending Colon: x 1 sessile polyp 10 mm removed with cold snare, 6-8 sessile polyp removed with cold forceps Transverse Colon -normal Descending Colon:normal Sigmoid Colon: normal Rectum: Retroflexion with small internal hemorrhoids seen, grade I, several small hyperplastic appearing polyps, x 2 sampled and removed with cold forceps 4-5 mm in size Anorectum - normal Intervention: cold snare, cold forceps Colon preparation: Berlin Bowel Preparation Scale Right colon; 2 Transverse colon: 2 Left colon; 2 (0 = Unprepared colon segment with mucosa not seen due to solid stool that cannot be cleared. 1 = Portion of mucosa of the colon segment seen, but other areas of the colon segment not well seen due to staining, residual stool and/or opaque liquid. 2 = Minor amount of residual staining, small fragments of stool and/or opaque liquid, but mucosa of colon segment seen well. 3 = Entire mucosa of colon segment seen well with no residual staining, small fragments of stool or opaque liquid) Impression and Post Procedure Diagnosis: colon polyps x 4 internal hemorrhoids Plan: High fiber diet leaflet Avoid straining at stool, epsom salts and sitz bath, anusol supps or cream Repeat Colonoscopy in 3-4 years due to polyps or earlier if clinically indicated Above findings were reviewed with the patient and relevant handouts were provided if indicated.
[2024-10-11 08:50] VITALS: BP 91/57; PULSE 59; RESP 18; TEMP 36.3; O2SAT 96
[2024-10-11 09:05] VITALS: BP 113/64; PULSE 58; RESP 20; TEMP 36.3; O2SAT 100
== END 2024-10-11 09:30 | disposition home or self-care (01) ==
PROVIDERS: Nurse Practitioner; PCP Internal Medicine Geriatric Medicine; Visit Provider Internal Medicine Gastroenterology
PROC: 0DJD8ZZ Inspection of Lower Intestinal Tract, Via Natural or Artificial Opening Endoscopic (ICD-10-PCS; CPT 45378; principal; 2024-10-11 09:20)
DX: Z12.11 Encounter for screening for malignant neoplasm of colon (principal); Z86.0101 Personal history of adenomatous and serrated colon polyps; D12.2 Benign neoplasm of ascending colon; K62.1 Rectal polyp; K64.0 First degree hemorrhoids; K59.01 Slow transit constipation; K21.9 Gastro-esophageal reflux disease without esophagitis; E78.00 Pure hypercholesterolemia, unspecified; G47.00 Insomnia, unspecified; Z79.899 Other long term (current) drug therapy; F12.90 Cannabis use, unspecified, uncomplicated; F14.90 Cocaine use, unspecified, uncomplicated
CPT/HCPCS: 45385; 45380; 80307; 88305; J2003; J2704

== ENCOUNTER → 2024-10-11 07:08 | Outpatient (BNV) | payer MEDICAID, SELFPAY | PROVIDERS: PCP Internal Medicine Geriatric Medicine; Visit Provider Internal Medicine Gastroenterology | DX: Z12.11 Encounter for screening for malignant neoplasm of colon (principal); Z86.0100 Personal history of colon polyps, unspecified; D12.2 Benign neoplasm of ascending colon; K62.1 Rectal polyp; K64.0 First degree hemorrhoids | CPT/HCPCS: 45380; 45385 ==

== ENCOUNTER 2024-11-22 08:50 | Outpatient (REF) | payer MEDICAID, SELFPAY ==
--- OUTSIDE RECORDS SUMMARY | 2024-11-22 09:23 | XMS_ITS | Encounter Summary ---
Author Organization [employer] Address [address] [place] [address] Care Team Providers Care Tray Worker Name Role Phone Name, Dylan BENITO Primary Care Provider [phone] Reason for Visit * Reason Onset Date Comments Appointment Request 07/08/2024 Encounter Details Date Type Department Care Team ([facility] st Contact Info) Description 07/08/2024 Telephone [facility] [address] [place], [place] [phone] Name, MD Dylan [address] [place], [place] [phone] Appointment Request Social History Tobacco Use Types Packs/Day Years Used Date Smoking Tobacco: Never Alcohol Use Standard Drinks/Week Comments Not Currently 0 (1 standard drink = 0.6 oz pur e alcohol) Depression Answer Date Recorded Patient Health Questionnaire-9 Score 0 10/22/2023 Patient Health Questionnaire-9 Score 0 10/22/2023 Last PHQ-9: Questionnaire Data Not on file 0 10/22/2023 Housing Stability Answer Date Recorded What is your housing situation today? I have morena nicolas 06/18/[address] you li ve. Do you have problems with any of the following? None of the above 06/18/2023 Food Insecurity Answer Date Recorded Within the past 12 months, y ou worried that your food would run out before you got money to buy more: Never True 06/18/2023 Within the past 12 months,th e food you bought just didn't last and you didn't have enough money to get more: Never True Transportation Answer Date Recorded In the past 12 months, has l ack of transportation kept you from medical appts, meetings, work or from getting things needed for daily living? No 06/18/2023 Utilities Answer Date Recorded In the past 12 months, has t he electric, gas, oil or water company threatened to shut off services in your home? No 06/18/2023 Depression Answer Date Recorded Patient Health Questionnaire-2 Score 0 10/22/2023 Sex and Gender Information Value Date Recorded Sex Assigned at Male 06/23/2022 10:16 AM EDT Legal Sex Male 10:16 AM EDT Gender Identity Male 06/23/2022 10:16 AM EDT Sexual Orientation Straight 06/23/2022 10 :16 AM EDT documented as of this encounter Miscellaneous Notes * Telephone Encounter - Andrew De La Cruz - 07/08/2024 9:34 AM EST Tc from pt requesting to reschedule missed 07/01 f/u with Dr Cunningham . Pt aware Name has no availability at this time . documented in this encounter Plan of Treatment Upcoming Encounters Date Type Department Care Team (Late st Contact Info) Description 11/24/2024 3:30 PM EDT Nurse Only [facility] [address] [place] [phone] 02/08/2025 2:15 PM EDT Office Visit [facility] [address] [place] [phone] NameDylan MD [address] [place] [phone] documented as of this encounter Visit Diagnoses Not on filedocumented in this encounter Additional Health Concerns Assessment Noted Time PHQ-9 Depression Total Score: 0 10/22/19 24 10:16 AM EST documented as of this encounter Care Teams Tray Worker Relationship Specialty Start Date End Date NameDylan MD [address] [place] [phone] PCP - General Family Medicine 05/13/19 documented as of this encounter
--- OUTSIDE RECORDS SUMMARY | 2024-11-22 09:23 | XMS_ITS | Clinical Summary ---
Author Organization [facility] Address [address] [place] [address] Care Team Providers Care Meteorological Observer Name Role Phone Unavailable Primary Care Provider Unavailabl e Social History Tobacco Use Types Packs/Day Years Used Date Smoking Tobacco: Never Assessed Sex and Gender Information Value Date Recorded Sex Assigned at Not on file Legal Sex Male 3:10 PM EST Gender Identity Not on file Sexual Orientation Not on file Plan of Treatment Health Maintenance Due Date Last Done Comments DTaP,Tdap,and Td Vaccines (1 - Tdap) 1993 Hepatitis B Vaccines (1 of 3 - 19+ 3-dose series) 1993 COVID-19 Vaccine ( - 2023-2 5 season) 2024 Influenza Vaccine (#1) 2024 Pneumococcal Vaccine: 50+ Ye ars (1 of 1 - PCV) 2024 Zoster Vaccines (1 of 2) 2024 HIB Vaccines Aged Out No longer eligi ble based on patient's age to complete this topic HPV Vaccines Aged Out No longer eligi ble based on patient's age to complete this topic Hepatitis A Vaccines Aged Out No long er eligible based on patient's age to complete this topic IPV Vaccines Aged Out No longer eligi ble based on patient's age to complete this topic MMR Vaccines Aged Out No longer eligi ble based on patient's age to complete this topic Meningococcal ACWY Vaccine Aged Out N o longer eligible based on patient's age to complete this topic Meningococcal B Vacine Aged Out No lo nger eligible based on patient's age to complete this topic Pneumococcal Vaccine: Pediat rics (0 to 5 Years) and At-Risk Patients (6 to 64 Years) Aged Out No longer eligible b ased on patient's age to complete this topic RSV Immunization Patients Un foreign 20 months Aged Out No longer eligible b ased on patient's age to complete this topic Varicella Vaccines Aged Out No longer eligible based on patient's age to complete this topic
--- OUTSIDE RECORDS SUMMARY | 2024-11-22 09:23 | XMS_ITS | Encounter Summary ---
Author Organization [facility] Address [address] [place] [address] [address] [place] [address] Care Team Providers Care Lead Assistant Manager Name Role Phone Name, Dylan BENITO Primary Care Provider [phone] Encounter Details Date Type Department Care Team (Late st Contact Info) Description 08/20/2022 Orders Only [facility] [address] [place] [address] Shanice Salas RN [address], [place] [phone] Social History Tobacco Use Types Packs/Day Years Used Date Smoking Tobacco: Never Assessed Sex and Gender Information Value Date Recorded Sex Assigned at Male 06/23/2022 10:16 AM EDT Legal Sex Male 10:16 AM EDT Gender Identity Male 06/23/2022 10:16 AM EDT Sexual Orientation Straight 06/23/2022 10 :16 AM EDT COVID-19 Exposure Response Date Recorded In the last 10 days, have yo u been in contact with someone who was confirmed or suspected to have Coronavirus/COVID-19? No / Unsure 08/06/2022 9:21 AM EST documented as of this encounter Plan of Treatment Upcoming Encounters Date Type Department Care Team (Late st Contact Info) Description 11/24/2024 3:30 PM EDT Nurse Only [facility] [address] [place] [address] [phone] 02/08/2025 2:15 PM EDT Office Visit [facility] [address] [place] [phone] Name, MD Dylan [address] [place] [address] documented as of this encounter Visit Diagnoses Not on filedocumented in this encounter Care Teams Lead Assistant Manager Relationship Specialty Start Date End Date Name, MD Dylan [address] [place] [address] PCP - General Family Medicine 05/13/19 documented as of this encounter
--- OUTSIDE RECORDS SUMMARY | 2024-11-22 09:23 | XMS_ITS | Clinical Summary ---
Author Organization [employer] Address [address] [place] [address] 7t [place] [address] Care Team Providers Care Sheep Or Calf Grader Name Role Phone Name, Dylan BENITO Primary Care Provider [phone] Allergies No known active allergies Medications hydrocortisone (Anusol-HC) 2.5 % rectal cream Insert 1 application into the rectum if needed for hemorrhoids. 08/06/20 22 Active loratadine (Claritin) 10 MG tablet TAKE 1 TABLET BY MOUTH EVERY MORNING 90 tablet 1 03/01/20 24 Active traZODone (Desyrel) 50 MG tabletIndicati ons:Primary insomnia TAKE 2 TABLETS BY MOUTH EVERY DAY AT BEDTIME 180 tablet 08/29/19 25 Active zolpidem (Ambien) 10 MG tabletIndicati ons:Primary insomnia TAKE 1 TABLET(10 MG) BY MOUTH AT BEDTIME 30 tablet 10/03/19 25 Active atorvastatin (Lipitor) 20 MG tabletIndicati ons:High cholesterol TAKE 1 TABLET BY MOUTH EVERY DAY 90 tablet 1 10/25/19 25 Active omeprazole (PriLOSEC) [address] capsuleIndicat ions:High cholesterol TAKE 1 CAPSULE BY MOUTH EVERY DAY 30 MINUTES TO 1 HOUR BEFORE A MEAL 90 capsule 1 10/25/19 25 Active omeprazole (PriLOSEC) [address] capsuleIndicat ions:High cholesterol TAKE 1 CAPSULE BY MOUTH EVERY DAY 30 MINUTES TO 1 HOUR BEFORE A MEAL 90 capsule 1 10/22/19 24 025 Discontinued(R eorder (will not trigger notification to Pharmacy)) atorvastatin (Lipitor) 20 MG tablet TAKE 1 TABLET BY MOUTH EVERY DAY 90 tablet 1 06/07/20 24 025 Discontinued(R eorder (will not trigger notification to Pharmacy)) Active Problems Problem Noted Date Diagnosed Date High cholesterol 12/17/2022 Insomnia 12/16/2022 Hx of colonoscopy with polypectomy 12/16/2022 Overview (12/16/2022): 07/23/22: ?? A. ??Cecum, polypectomy: ??Tubular adenoma; negative for high-grade dysplasia or carcinoma. ? B. ??Colon, transverse, polypectomy: ??Tubular adenoma; negative for high- grade dysplasia ? or carcinoma. ? C. ??Colon, sigmoid, polypectomy: ??Vegetable material only; no colonic tissue identified. ? D. ??Rectum, polypectomy: ??Hyperplastic mucosal polyp. ?? Repeat recommend 1-2 years Resolved Problems Problem Noted Date Diagnosed Date Resolved Date Overweight (BMI 25.0-29.9) 12/16/2022 0 12/16/2022 Encounters Date Type Department Care Team Description 11/04/2024 Population Health Risk Score Community [facility] ([facility] Department [address] [phone] Provider, Population Health Generic 10/24/2024 1:45 PM EST Office Visit [facility] MEDICINE [address] [place] [phone] Dylna Cunningham MD High cholesterol (Primary Dx); Screening for prostate cancer 10/24/2024 Travel 10/19/2024 Telephone [facility] [address] [place] [address] Dylan Cunningham MD chartprep 10/14/2024 Abstract [facility] MEDICINE [address] [place] [address] Dylan Cunningham MD 10/12/2024 Orders Only [facility] MEDICINE [address] [place] [phone] Provider, MD Elpidio 10/11/2024 Orders Only GENERIC EXTERNAL DATA DEPARTMENT Provider, Generic External Data 10/03/2024 Refill [facility] [address] [place] [address] Dylan Cunningham MD Primary insomnia 08/28/2024 Refill [facility] [address] [place] [address] Name, MD Dylan Primary insomnia from Last 3 Months Immunizations Name Administration Dates Next Due Influenza injectable quadriv alent preservative free 06/23/2022,07/17/2021,05/13/2019 Influenza, seasonal, injecta ble, preservative free 10/24/2024 Moderna Covid-19 Vaccine 6+ Bivalent 08/06/2022 Tdap 05/13/2019 Family History Medical History Relation Name Comments Coronary artery disease Father Prostate cancer Father Relation Name Status Comments Father Social History Tobacco Use Types Packs/Day Years Used Date Smoking Tobacco: Never Tobacco Cessation:Counseling Given: Not Answered Alcohol Use Standard Drinks/Week Comments Not Currently 0 (1 standard drink = 0.6 oz pur e alcohol) Depression Answer Date Recorded Patient Health Questionnaire-9 Score 0 10/22/2023 Patient Health Questionnaire-9 Score 0 10/22/2023 Last PHQ-9: Questionnaire Data Not on file 0 10/22/2023 Housing Stability Answer Date Recorded What is your housing situation today? I have morena nicolas 10/24/[address] you li ve. Do you have problems with any of the following? None of the above 10/24/2024 Food Insecurity Answer Date Recorded Within the past 12 months, y ou worried that your food would run out before you got money to buy more: Never True 10/24/2024 Within the past 12 months,th e food you bought just didn't last and you didn't have enough money to get more: Never True 10/2024 Transportation Answer Date Recorded In the past 12 months, has l ack of transportation kept you from medical appts, meetings, work or from getting things needed for daily living? No 10/24/2024 Utilities Answer Date Recorded In the past 12 months, has t he electric, gas, oil or water company threatened to shut off services in your home? No 10/24/2024 Depression Answer Date Recorded Patient Health Questionnaire-2 Score 0 10/22/2023 Internet Access Answer Date Recorded Internet Access Q1 Yes 10/24/2024 Internet Access Q2 Not on file 10/24/2024 Sex and Gender Information Value Date Recorded Sex Assigned at Male 06/23/2022 10:16 AM EDT Legal Sex Male 10:16 AM EDT Gender Identity Male 06/23/2022 10:16 AM EDT Sexual Orientation Straight 06/23/2022 10 :16 AM EDT Last Filed Vital Signs Vital Sign Reading Time Taken Comments Blood Pressure 107/69 10/24/2024 1:40 PM EST Pulse 69 10/24/2024 1:40 PM EST Temperature 36.8 ??C (98.2 ??F) 10/24/2024 1:40 PM ES T Respiratory Rate 21 10/24/2024 1:40 PM EST Oxygen Saturation 99% 10/24/2024 1:40 PM EST Inhaled Oxygen Concentration - - Weight 66.4 kg (146 lb 6.4 oz) 10/24/2024 1:40 P M EST Height 177.8 cm (5' 10 ) 10/24/2024 1:40 PM EST Body Mass Index 21.01 10/24/2024 1:40 PM EST Plan of Treatment Upcoming Encounters Date Type Department Care Team (Late st Contact Info) Description 11/24/2024 3:30 PM EDT Nurse Only [facility] MEDICINE [address] [place] [phone] 02/08/2025 2:15 PM EDT Office Visit [facility] MEDICINE [address] [place] [phone] Name, MD Dylan [address] [place] [phone] Health Maintenance Due Date Last Done Comments CT Colonography 1975 FIT DNA/Cologuard 1975 FIT 1975 FOBT 1975 HIV Screening 1975 Sigmoidoscopy 1975 Alcohol/Substance Use Screening 1986 Family Planning (PISQ) 1989 Hepatitis C Screening 1992 Hepatitis B Vaccines (1 of 3 - 19+ 3-dose series) 1993 COVID-19 Vaccine ( season) 2024 08/06/2022, 11/11/2021, 01/14/2021, Additional history exists Pneumococcal Vaccine: 50+ Years (1 of 1 - PCV) 2024 Zoster Vaccines (1 of 2) 2024 Depression Screening 10/21/2024 10/22/2023, 10/22/19 SDOH Screening 10/24/2025 10/24/2024 Tobacco Screening 10/24/2025 10/24/2024 Colonoscopy 10/11/2027 10/11/2024, 10/11/2024 Colorectal Cancer Screening 10/11/2027 Lipid Panel 01/12/2029 01/13/2024, 07/24, 03/08/2022 DTaP/Tdap/Td Vaccines (2 - Td or Tdap) 05/13/2029 05/13/2019 RSV Patients and Patients Aged 60 years or older (1 - 1-dose 75+ series) 2049 Influenza Vaccine Completed 10/24/2024, , 07/17/2021, Additional history exists HIB Vaccines Aged Out No longer eligi [...] patient's age to complete this topic Meningococcal Vaccine Aged Out No hyacinth zeinab eligible based on patient's age to complete this topic RSV under 20 months Aged Out No longe r eligible based on patient's age to complete this topic Rotavirus Vaccines Aged Out No longer eligible based on patient's age to complete this topic Procedures Procedure Name Priority Date/Time Associated Diagnosis Comments HM COLONOSCOPY Routine 10/11/2024 2:30 PM EST HM COLONOSCOPY Routine 10/11/2024 8:50 AM EST HEMATOXYLIN AND EOSIN STAIN Routine 10/11/2024 8:37 AM EST DRUG MONITOR, PANEL 1, SCREEN, URINE Routine 10/11/2024 7:30 AM EST LIPID PANEL, STANDARD Routine 01/13/2024 10:46 AM EDT High cholesterol from Last 3 Months or Most Recently Relevant to Health Maintenance Results * Hm Colonoscopy (10/11/2024 2:30 PM EST) us Historical Provider HEALTH MAINTENANCE Final Result * (ABNORMAL) Hm Colonoscopy (10/11/2024 8:50 AM EST) Colonoscopy Abnormal(A ) Normal 10/11/2024 8:50 AM EST us Dylan Name HEALTH MAINTENANCE Final Result * Hematoxylin and Eosin Stain (10/11/2024 8:37 AM EST) 10/11/2024 8:37 AM EST 10/11/2024 9:32 AM EST Narrative [facility] - 10/13/2024 10:32 AM EST ----- ------- Name: Dorina Aldana ? Age/Sex: 49/M ? : 1975 Unit#: [id number] ?? Attend Dr: China Kurtz MD ?Re10/11/24 ?Status: DEP [facility] ? Location: HO.SSS ?Disch: ? ----- ------- SPEC : [id number] ?RECD: 10/11/24 ? STATUS: ??SOUT ? REQ NUM: [id number] ? SYLVIA: 10/11/24 ? SUBM DR: China Kurtz MD ? ENTERED: ??10/11/24 ?SP TYPE: Surgical ? OTHR DR: Dylan Cunningham MD ? ORDERED: ??HE Stain/6, Gross Micro L4/2 ? Diagnosis ?? A. ??Colon, ascending, polyps: ??Tubular adenoma (1 piece); negative for high-grade ?? dysplasia and carcinoma, and colonic mucosa with prominent lymphoid aggregates and no ?? specific changes (2 pieces). ? B. ??Colon, rectal polyp: ??Colonic mucosa with lymphoid aggregates and no specific change; ?? no adenomatous dysplasia seen. ?Clinical History Pre-Op Dx: ??Screening Post-Op Dx: Colon polyps ?Microscopic Description Multiple microscopic sections reviewed. ? Material Received ?? A. Ascending colon polyps ?? B. Rectal polyp ? Gross Description Received in two parts. Part A: ??Received in formalin labeled ?ascending colon polyps? are 3 mann-pink irregular, papular and rectangular tissue fragments ranging from 0.25-0.4 cm, submitted in toto in a cassette labeled A. Part B: ??Received in formalin labeled ?rectal polyp? are 2 pink-red irregular tissue fragments measuring 0.2 and 0.25 cm, submitted in toto in a cassette labeled Pilar CARUSO Copies To: ?? China Kurtz MD ?? [facility] ?? [address] ?? [place] [address] ?? [phone] ? CONTINUED ON NEXT PAGE ----- ------- Name: Dorina Aldana ? Age/Sex: 49/M ? : 1975 Unit#: [id number] ?? Attend Dr: China Kurtz MD ?Re10/11/24 ?Status: DEP [facility] ? Location: HO.SSS ?Disch: ? ----- ------- SPEC : [id number] ?RECD: 10/11/24-931 ? STATUS: ??SOUT ? REQ NUM: [id number] ? SYLVIA: 10/11/24 ? SUBM DR: China Kurtz MD ? ENTERED: ??10/11/24 ?SP TYPE: Surgical ? OTHR : Name,Dylan BENITO ? ORDERED: ??HE Stain/6, Gross Micro L4/2 ? Copies To: ??(Continued) ?? Name,Dylan BENITO ?? [address] [facility] ?? [place] [address] ?? [phone] ----- ------- Signed (signature on file) Anya Pedraza 10/13/24 [facility] ? ----- ------- ? END OF REPORT ? us Generic External Data Provider LAB BLOOD ORDERAB LES Final Result [facility] [address] [place] [phone] * (ABNORMAL) Drug Monitoring, Panel 1, Screen, Urine (10/11/2024 7:30 AM EST) Opiate Screen Urine Not Detected Not Detect [facility] Comment:Opiate cut-off is 30 0 ng/mL.Positive results are unconfirmed and should not be used fornon-medical purposes. Barbiturates, Urine Not Detected Not Detect [facility] Comment:Barbiturate cut-off is 200 ng/mL.Positive results are unconfirmed and should not be used fornon-medical purposes. Phencyclidine Screen Urine Not Detected Not Detect [facility] Comment:Phencyclidine cut-of f is 25 ng/mL.Positive results are unconfirmed and should not be used fornon-medical purposes. Amphetamine Screen Urine Not Detected Not Detect [facility] Comment:Amphetamine cut-off is 1000 ng/mL.Positive results are unconfirmed and should not be used fornon-medical purposes. Benzodiazepines Screen Urine Not Detected Not Detect [facility] Comment:Benzodiazepine cut-o ff is 200 ng/mL.Positive results are unconfirmed and should not be used fornon-medical purposes. Cocaine Screen Urine Not Detected Not Detect [facility] Comment:Cocaine cut-off is 3 00 ng/mL.Positive results are unconfirmed and should not be used fornon-medical purposes. Cannabinoid Screen Urine POSITIVE(A) Not Detect [facility] Comment:Cannabinoid cut-off is 50 ng/mL.Positive results are unconfirmed and should not be used fornon-medical purposes. Methadone Screen, Urine Not Detected Not Detect ng/mL [facility] Comment:Methadone cut-off is 300 ng/mL.Positive results are unconfirmed and should not be used fornon-medical purposes. FENTANYL URINE Not Detected Not Detect [facility] Comment:Fentanyl cut-off is 1 ng/mL.Positive results are unconfirmed and should not be used fornon-medical purposes. Oxycodone Urine Screen Not Detected Not Detect ng/mL [facility] Comment:Oxycodone cut-off is 100 ng/mL.Positive results are unconfirmed and should not be used fornon-medical purposes. Buprenorphine Screen Not Detected Not Detect ng/mL [facility] Comment:Buprenorphine cut-of f is 5 ng/mL.Positive results are unconfirmed and should not be used fornon-medical purposes. 10/11/2024 7:30 AM EST 10/11/2024 7:49 AM EST us Generic External Data Provider LAB URINE ORDERAB LES Final Result [facility] [address] [place] [phone] * Lipid Panel, Standard (01/13/2024 10:46 AM EDT) Triglycerides 61 <150 mg/dL [facility] Comment:Desirable Triglyceri de: less than 150 mg/dLBorderline High Triglyceride 150-199 mg/dLHigh Triglyceride: 200-499 mg/dLVery High Triglyceride: greater than or equal to 5OO mg/dL Cholesterol 154 <200 mg/dL [facility] Comment:Desirable Cholestero l: less than 200 mg/dLBorderline High Cholesterol: 200-239 mg/dLHigh Cholesterol: greater than 239 mg/dL LDL Cholesterol Calculated 90 <100 mg/dL [facility] Comment:Desirable LDL: less than 100 mg/dLNear Optimal/Above Optimal LDL: 110- 129 mg/dLBorderline High LDL: 130-159 mg/dLHigh LDL: 160-189 mg/dLVery High LDL: greater than or equal to 190 mg/dL HDL Cholesterol 52 >40 mg/dL [facility] Comment:Desirable HDL: great er than 40 mg/dL Note: This HDL assay may give artificially low results in patients with liver disease. Blood Venous blood specimen / Unknown 01/13/2024 10:46 AM EDT 01/13/2024 1:06 PM EDT Dylan Cunningham MD LAB BLOOD ORDERABLES Final Resul t [facility] [address] [place] [address] [phone] from Last 3 Months or Most Recently Relevant to Health Maintenance Insurance [facility] C3 HSN PARTIAL Care Teams Sheep Or Calf Grader Relationship Specialty Start Date End Date Name, MD Dylan [address] [place] [address] PCP - General Family Medicine 05/13/19
--- OUTSIDE RECORDS SUMMARY | 2024-11-22 09:23 | XMS_ITS | Encounter Summary ---
Author Organization [employer] Address [address] [place] [address] 7t [place] [address] Care Team Providers Care Tool Specialist Name Role Phone Name, Dylan BENITO Primary Care Provider [phone] Reason for Visit * Reason Onset Date Comments Med Refill 05/25/2023 Encounter Details Date Type Department Care Team ([facility] st Contact Info) Description 05/25/2023 Telephone [facility] MEDICINE [address] [place], [place] [phone] Name, MD Dylan [address] [place] [address] Med Refill Social History Tobacco Use Types Packs/Day Years Used Date Smoking Tobacco: Never Alcohol Use Standard Drinks/Week Comments Not Currently 0 (1 standard drink = 0.6 oz pur e alcohol) Depression Answer Date Recorded Patient Health Questionnaire-9 Score 0 12/16/2022 Depression Answer Date Recorded Patient Health Questionnaire-2 Score 0 12/16/2022 Sex and Gender Information Value Date Recorded Sex Assigned at Male 06/23/2022 10:16 AM EDT Legal Sex Male 10:16 AM EDT Gender Identity Male 06/23/2022 10:16 AM EDT Sexual Orientation Straight 06/23/2022 10 :16 AM EDT documented as of this encounter Miscellaneous Notes * Telephone Encounter - Shanice Cerda LPN - 05/25/2023 1:50 PM EDT Medication pended to PCP. * Telephone Encounter - Victoria Medina - 05/25/2023 1:44 PM EDT Tc from patient requesting a med refill for medication atorvastatin [address] Cunningham documented in this encounter Plan of Treatment Upcoming Encounters Date Type Department Care Team (Late st Contact Info) Description 11/24/2024 3:30 PM EDT Nurse Only [facility] MEDICINE [address] [place] [phone] 02/08/2025 2:15 PM EDT Office Visit [facility] [address] [place] [phone] Dylan Cunningham MD [address] [place] [phone] documented as of this encounter Visit Diagnoses Not on filedocumented in this encounter Additional Health Concerns Assessment Noted Time PHQ-9 Depression Total Score: 0 12/17/19 23 2:28 PM EDT documented as of this encounter Care Teams Tool Specialist Relationship Specialty Start Date End Date Dylan Cunningham MD [address] [place] [phone] PCP - General Family Medicine 05/13/19 documented as of this encounter
--- OUTSIDE RECORDS SUMMARY | 2024-11-22 09:23 | XMS_ITS | Encounter Summary ---
Author Organization [email or web address] Address [address] [facility] 7t [place] [address] Care Team Providers Care Retail Security Professional Name Role Phone Name, Dylan BENITO Primary Care Provider [phone] Reason for Visit * Reason Comments Med Refill Encounter Details Date Type Department Care Team ([facility] st Contact Info) Description 08/24/2023 Refill [facility] MEDICINE [address] [place], [place] [phone] Name, MD Dylan [address] [place], [place] [phone] Primary insomnia Social History Tobacco Use Types Packs/Day Years Used Date Smoking Tobacco: Never Alcohol Use Standard Drinks/Week Comments Not Currently 0 (1 standard drink = 0.6 oz pur e alcohol) Depression Answer Date Recorded Patient Health Questionnaire-9 Score 0 12/16/2022 Housing Stability Answer Date Recorded What is your housing situation today? I have morenacarlos nicolas 06/18/[address] you [...] AM EDT documented as of this encounter Plan of Treatment Upcoming Encounters Date Type Department Care Team (Late st Contact Info) Description 11/24/2024 3:30 PM EDT Nurse Only [facility] MEDICINE [address] [place] [phone] 02/08/2025 2:15 PM EDT Office Visit [facility] MEDICINE [address] [place] [phone] NameDylan MD [address] [place] [phone] documented as of this encounter Visit Diagnoses Diagnosis Primary insomnia Persistent disorder of initiating or maintaining sleep documented in this encounter Additional Health Concerns Assessment Noted Time PHQ-9 Depression Total Score: 0 12/17/19 23 2:28 PM EDT documented as of this encounter Care Teams Retail Security Professional Relationship Specialty Start Date End Date NameDylan MD [address] [place] [phone] PCP - General Family Medicine 05/13/19 documented as of this encounter
--- OUTSIDE RECORDS SUMMARY | 2024-11-22 09:23 | XMS_ITS | Encounter Summary ---
Author Organization [employer] [facility] Address [address] [place] [address] 7t [place] [address] Care Team Providers Care Sourcing Consultant Name Role Phone NameDylan MD Primary Care Provider [phone] Reason for Visit * Reason Comments Med Refill Encounter Details Date Type Department Care Team (Late st Contact Info) Description 12/11/[address] [facility] MEDICINE [address] [place] [phone] NameDylan MD [address] [place] [phone] Social History Tobacco Use Types Packs/Day Years [...] Description 11/24/2024 3:30 PM EDT Nurse Only [facility] MEDICINE [address] [place] [address] [phone] 02/08/2025 2:15 PM EDT Office Visit [facility] MEDICINE [address] [place] [address] [phone] Dylan Cunningham MD [address] [place] [phone] documented as of this encounter Visit Diagnoses Not on filedocumented in this encounter Care Teams Sourcing Consultant Relationship Specialty Start Date End Date NameDylan MD [address] [place] [address] PCP - General Family Medicine 05/13/19 documented as of this encounter
--- OUTSIDE RECORDS SUMMARY | 2024-11-22 09:23 | XMS_ITS | Encounter Summary ---
Author Organization [employer] Address [address] [facility] [address] [place] [address] Care Team Providers Care Associate Dentist Name Role Phone Name, Dylan BENITO Primary Care Provider [phone] Encounter Details Date Type Department Care Team (Late st Contact Info) Description 10/12/2024 Orders Only [facility] MEDICINE [address] [place], [place] [phone] Provider, MD Elpidio Social History Tobacco Use Types Packs/Day Years [...] Description 11/24/2024 3:30 PM EDT Nurse Only [facility] [address] [place] [phone] 02/08/2025 2:15 PM EDT Office Visit [facility] MED[facility] [address] [place] [phone] NameDylan MD [address] [place] [phone] documented as of this encounter Procedures Procedure Name Priority Date/Time Associated Diagnosis Comments HM COLONOSCOPY Routine 10/11/2024 2:30 PM EST documented in this encounter Results * Hm Colonoscopy (10/11/2024 2:30 PM EST) us Historical Provider HEALTH MAINTENANCE Final Result documented in this encounter Visit Diagnoses Not on filedocumented in this encounter Additional Health Concerns Assessment Noted Time PHQ-9 Depression Total Score: 0 10/22/19 24 10:16 AM EST documented as of this encounter Care Teams Associate Dentist Relationship Specialty Start Date End Date Name, MD Dylan [address] [place] [phone] PCP - General Family Medicine 05/13/19 documented as of this encounter
[2024-11-22 11:44] LABS: Alanine Aminotransferase 7 U/L (0-40); Albumin Level 4.1 g/dL (3.5-5.0); Alkaline Phosphatase 51 U/L (39-117); Anion Gap 7 (12-20); Aspartate Amino Transferase 19 U/L (5-37); Bilirubin Total 0.6 mg/dL (0.0-1.0); Blood Urea Nitrogen 11 mg/dL (9-16); Calcium 9.1 mg/dL (8.4-10.2); Carbon Dioxide 28 mmol/L (22-29); Chloride 110 mmol/L (96-108); Cholesterol 177 mg/dL (<200); Estimated Glomerular Filt Rate > 60; Glucose Random 101 mg/dL (60-115); HDL Cholesterol 53 mg/dL (>40); LDL Cholesterol Calculated 97 mg/dL (<100); Potassium 4.1 mmol/L (3.3-5.1); Sodium 141 mmol/L (135-145); Total Protein 6.6 g/dL (6.5-8.0); Triglycerides 137 mg/dL (<150)
[2024-11-22 12:02] LABS: Prostate Specific Antigen 1.93 ng/mL (<0.05-4.0)
== END 2024-11-22 08:51 | disposition home or self-care (01) ==
LOC: HO.HHCL 08:50
PROVIDERS: Visit Provider Internal Medicine Geriatric Medicine
DX: Z12.5 Encounter for screening for malignant neoplasm of prostate (principal); E78.00 Pure hypercholesterolemia, unspecified
CPT/HCPCS: 36415; 80053; 80061; 84153